=== PATIENT | female | born 1970 | race Caucasian/White ===

== ENCOUNTER 2017-02-15 05:56 | Day surgery (SDC) | payer BC ==
[2017-02-15] MEDS ORDERED: Dextrose 5%-Lactated Ringers 1,000 ML IV SCH (06:00)
[2017-02-15] MEDS ORDERED: Glycopyrrolate 0.2 MG/ML 2 ML SYRINGE IVPUSH ONE (07:00)
[2017-02-15] MEDS ORDERED: fentaNYL 100 MCG/2 ML SDV ONE (07:06)
[2017-02-15] MEDS ORDERED: Propofol 200 MG/20 ML SDV ONE (07:06)
[2017-02-15] MEDS ORDERED: Midazolam 1 MG/ML 2 ML SDV ONE (07:06)
[2017-02-15] MEDS ORDERED: Dexamethasone 4 MG/ML SDV ONE (07:08)
[2017-02-15] MEDS ORDERED: Ondansetron 4 MG/2 ML SDV ONE (07:08)
[2017-02-15 08:41] VITALS: BP 136/81
--- NOTE | 2017-02-18 12:01 | OR ---
DATE OF PROCEDURE: 02/15/2017 PREOPERATIVE DIAGNOSIS: Gastroesophageal reflux disease. POSTOPERATIVE DIAGNOSES: 1. Gastroesophageal reflux disease associated with small hiatal hernia and markedly ulcerated esophagitis. 2. Single antral polyp. OPERATIVE PROCEDURES: Esophagogastroduodenoscopy with, 1. Gastric polypectomy (39810). 2. Biopsy of esophagogastric junction (05008). ANESTHESIA: IV sedation. INDICATION FOR PROCEDURE: This is a 46-year-old female presenting with progressively worsening gastroesophageal reflux disease. In the past, she has been on some medications, but does generally not wish to be on medication and presently is not on any. She is having problems with bile coming up into the chest and also into the throat and coming out the nose at times. Plan is to proceed with upper GI endoscopy with biopsies as indicated. Potential risks including bleeding and perforation were discussed and the patient wishes that to proceed. DETAILS OF PROCEDURE: The patient was taken to the operating room and placed in a left lateral decubitus position. IV sedation was administered, after which the upper GI endoscope was passed orally through the length of the esophagus and into the stomach with retroflexion view of the fundus, thereafter through the pyloric channel and into the proximal duodenum. Findings included normal hypopharynx, larynx, upper esophageal sphincter, esophageal body, and distal esophagus. There was a small hiatal hernia, but a strikingly aggressive- appearing ulcerative esophagitis with a total of 5 erosions extending up from the esophagogastric junction. The longest of these measured around 4 cm. These were covered with fibrinous exudate with no active bleeding. There was no stricture or gross evidence of neoplasia at the esophagogastric junction. Within the stomach, the only abnormality noted was a small antral polyp. This was in a field of some very slight redness in the antrum. Pyloric channel and duodenum to the junction of the third and fourth portions were unremarkable. At this point, the antral polyp was encircled with a snare and excised and retrieved by means of a biopsy forceps after being amputated from the gastric wall via the snare. Good hemostasis was confirmed. Following this, multiple biopsies were obtained from the esophagogastric junction targeting the ulcerated areas. Minimal bleeding from the biopsy sites was seen and the procedure then concluded. The patient was taken to the recovery room in satisfactory condition. Plan will be to see the patient back in the clinic next Wednesday. We will have histology reports back and the patient would appear to be probably someone who should undergo a surgical antireflux procedure, given the severity of her symptoms and her desire not to be on medication. Larry Devries MD /[id number]
== END 2017-02-15 08:44 | disposition home or self-care (01) ==
LOC: JP.SDS 05:56
PROVIDERS: ATTEND Surgery
DX: K31.7 Polyp of stomach and duodenum (principal); K20.9 Esophagitis, unspecified; Z91.018 Allergy to other foods
CPT/HCPCS: 43239; 43251; J1100; J2250; J2405; J2704; J3010; J7042; 88305; 88312

== ENCOUNTER 2017-04-05 05:28 | Inpatient (IN) | payer BC ==
[2017-04-05] MEDS ORDERED: Dextrose 5%-Lactated Ringers 1,000 ML IV SCH (05:30)
[2017-04-05] MEDS ORDERED: ceFAZolin 2 GM in Premix Bag 1 BAG IV ONE (07:00)
[2017-04-05] MEDS ORDERED: fentaNYL 250 MCG/5 ML SDV ONE ×2 (07:01→08:12)
[2017-04-05] MEDS ORDERED: Midazolam 1 MG/ML 2 ML SDV ONE (07:01)
[2017-04-05] MEDS ORDERED: Ondansetron 4 MG/2 ML SDV ONE (07:02)
[2017-04-05] MEDS ORDERED: Dexamethasone 4 MG/ML SDV ONE (07:02)
[2017-04-05] MEDS ORDERED: Propofol 200 MG/20 ML SDV ONE (07:02)
[2017-04-05] MEDS ORDERED: Neostigmine Methylsulfate 1 MG/ML 5 ML Syringe ONE (07:02)
[2017-04-05] MEDS ORDERED: Rocuronium 50 MG/5 ML Vial ONE (07:02)
[2017-04-05] MEDS ORDERED: Naloxone 0.4 MG/ML SDV IVPUSH PRN (07:16)
[2017-04-05] MEDS: HYDROmorphone/Normal Saline 15 MG/30 ML PCA IV PRN ×2 (07:26→09:23)
[2017-04-05] MEDS ORDERED: hydrOXYzine HCl 50 MG/ML SDV IM ONE (09:36)
[2017-04-05] MEDS ORDERED: Ondansetron 4 MG/2 ML SDV IV PRN (10:50)
[2017-04-05] MEDS: Metoclopramide 10 MG/2 ML SDV IV SCH ×2 (12:55→17:21)
[2017-04-05] MEDS ORDERED: Pantoprazole 40 MG Vial IV SCH (13:00)
[2017-04-05] MEDS: ceFAZolin 2 GM in Sodium Chloride 0.9% 50 ML IV SCH ×2 (14:08→21:30)
[2017-04-05] MEDS: Levothyroxine 112 MCG Tab PO SCH (16:05)
[2017-04-05] MEDS: Dextrose 5%-Lactated Ringers 1,000 ML IV SCH ×2 (17:20→23:20)
[2017-04-06] MEDS: Metoclopramide 10 MG/2 ML SDV IV SCH ×3 (00:17→11:12)
[2017-04-06] MEDS: Dextrose 5%-Lactated Ringers 1,000 ML IV SCH (05:51)
[2017-04-06] MEDS: ceFAZolin 2 GM in Sodium Chloride 0.9% 50 ML IV SCH (05:51)
[2017-04-06] MEDS ORDERED: HYDROmorphone 2 MG Tab PO PRN (09:59)
[2017-04-06] MEDS ORDERED: Acetaminophen 325 MG Tab PO PRN (09:59)
[2017-04-06] MEDS ORDERED: Cyclobenzaprine 10 MG Tab PO PRN (10:00)
[2017-04-06] MEDS ORDERED: Dextrose 5%-Lactated Ringers 1,000 ML IV SCH (10:00)
[2017-04-06] MEDS: Levothyroxine 112 MCG Tab PO SCH (11:11)
[2017-04-06] MEDS ORDERED: Pantoprazole 40 MG Tab.CR PO SCH (16:30)
[2017-04-07] MEDS: Levothyroxine 112 MCG Tab PO SCH (07:24)
[2017-04-07 07:40] VITALS: BP 148/82
--- NOTE | 2017-04-07 12:22 | PN ---
DATE OF SERVICE: 04/06/2017 The patient is postop day 1 from Filipe fundoplication. Clinically, she is doing well. At this point, I will start a full liquid diet today. I will switch her to oral pain medication and let her get in the shower. She does have some muscle spasm in the left lateral trocar sites, and we will add some Flexeril p.r.n. She may be discharged home tomorrow. Larry Devries MD /[id number]
--- NOTE | 2017-04-07 17:35 | DISCH ---
FINAL DIAGNOSES: 1. 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 2. Mediastinal lipoma. 3. Obesity. 4. Treated hypothyroidism. OPERATIVE PROCEDURE: Done on 04/05, laparoscopic Filipe fundoplication with paraesophageal diaphragmatic hernia with mesh with an excision of mediastinal lipoma. HOSPITAL COURSE: This is a 46-year-old female presenting with longstanding gastroesophageal reflux disease that had become refractory to medical management. After preoperative evaluation and discussion, she wished to proceed with a Filipe fundoplication. On the date of admission, the patient had a significant paraesophageal component to her hiatal hernia. This was repaired with a crural repair augmented by mesh and had a mediastinal lipoma dissected free at the time of the procedure. Postoperatively, she had a little bit of discomfort on the incisions initially, but now has not required anything more than Tylenol over the last 24 hours. Tolerating the full liquid diet and the plan will be to discharge home. She will be continuing her usual home medications, which consist of Rolaids p.r.n. and Synthroid along with Tylenol p.r.n. She will be instructed to stay on a full-liquid diet for 2 weeks and then begin advancing to soft solids as tolerated at that point. Follow up with Dr. Devries in [facility] on 04/17/2017.
--- NOTE | 2017-04-09 08:56 | OR ---
DATE OF PROCEDURE: 04/05/2017 PREOPERATIVE DIAGNOSIS: Gastroesophageal reflux disease refractory to medical management. POSTOPERATIVE DIAGNOSES: 1. Paraesophageal diaphragmatic hernia associated with gastroesophageal reflux disease, refractory to medical management. 2. Mediastinal lipoma. OPERATIVE PROCEDURE: 1. Laparoscopic Filipe fundoplication with repair of paraesophageal diaphragmatic hernia with mesh (56177). 2. Excision of mediastinal lipoma (28893). ANESTHESIA: General. CLAIM ANALYST: Skylar Liu PA-C and ALOK Hurst INDICATIONS FOR PROCEDURE: This is a 46-year-old female presenting with progressively worsening gastroesophageal reflux disease that has become refractory to medical management. After preop evaluation and discussion, she wished to proceed with a Filipe fundoplication procedure. Potential risks including bleeding, infection, injury to underlying viscera, problems with the fundoplication such as dysphagia, gas-bloat syndrome, disorders in gastric emptying rate, as well as possible incomplete relief of reflux symptoms were reviewed along with the remote possibility of cardiopulmonary, septic, or hemorrhagic complications leading to and the patient wishes to proceed. DETAILS OF PROCEDURE: The patient was taken to the operating room and placed in a supine position. After general endotracheal anesthesia was induced, she was converted to a lithotomy position. Clements catheter was inserted and the abdomen prepped and draped. At 15 cm inferior, 5 cm left of xiphoid process, a transverse incision was made and the peritoneal cavity entered under direct vision with an Optiview trocar inflated to 15 mmHg pressure with CO2. Laparoscope was then reinserted. No underlying trocar insertion site injuries were seen. Following this, 4 additional trocars were placed across the upper mid abdomen and general exploration undertaken. Upon elevation of the liver the patient was noted to have a large hiatal hernia. This had a significant paraesophageal component to it with prolapse of the midportion of the gastric fundus in a plane anterior to the course of the esophagus. As this was reduced, the peritoneum to the right, then anterior, then to the left of the esophagogastric junction was incised and the esophagus then dissected away from the right and left crura and the retroesophageal window established. Juan drain was placed around this area and then the distal esophagus was dissected free circumferentially to the point where there was a roughly 4 to 5 cm segment of intraabdominal esophagus present without retraction on the [place] drain. During the course of the dissection, a mediastinal lipoma was excised. This was removed with 2 segments and sent for histologic evaluation. The posterior crural repair was then accomplished with some 0 Ethibond suture. The sutures were reinforced with PTFE pledgets. The extent of the hiatal hernia was such that there was a fair bit of tension on the crural repair and given this, a Phasix mesh was selected and this just gets to lay across the crural repair posteriorly, then alongside of the esophageal hiatus. Once in position, this was fixed with some titanium tacking screws. The division of the omentum away from the greater curvature of the stomach then began with the Harmonic scalpel at the level of the mid greater curvature, this continued proximally to include the short gastric as well as highest and posterior short gastric vessels. This allowed a very nicely mobile fundus which was retrieved through the retroesophageal window. Anesthesia then placed a guidewire orally through the length of the esophagus into the stomach. Over this, a 54-Kiswahili Savary dilator was placed. A 2 cm three-stitch fundoplication was then accomplished with 0 Ethibond sutures reinforced with PTFE pledgets. Two additional sutures between the top of the fundoplication on the right and then on the left were taken to the overlying diaphragm with the same stitch pledget combination in order to fix the fundoplication in the appropriate location over the distal esophagus. At that point, no further problems were noted. No bleeding or other problems were seen. The dilator and wire were removed and the fundoplication was judged to be sufficiently floppy. The trocars were then sequentially removed. The fascia at the 12 mm camera port was closed with 0 Vicryl stitch and the skin with 4-0 Vicryl skin stitch. Dressing was applied. The patient was taken to the recovery room in satisfactory condition. Physician operating room assistant, Skylar Liu PA-C, played an essential role in assisting in this case, helping to position the patient, retract structures as needed, as well as suturing and cutting sutures when indicated. Her presence improved the patient's safety and decreased the operative time. Larry Devries MD /[id number]
== END 2017-04-07 09:38 | disposition home or self-care (01) | DRG 220 ==
LOC: JP.SDS 05:28 → JP.MS 05:28 → JP.2SS 10:05 → EDSTATUS 10:15
PROVIDERS: ADMIT Surgery; ATTEND Surgery
PROC: 0BUR4JZ (ICD-10-PCS; principal; 2017-04-05)
PROC: 0BUS4JZ (ICD-10-PCS; principal; 2017-04-05)
PROC: 0DV44ZZ Restriction of Esophagogastric Junction, Percutaneous Endoscopic Approach (ICD-10-PCS; principal; 2017-04-05)
PROC: 0WBC4ZX Excision of Mediastinum, Percutaneous Endoscopic Approach, Diagnostic (ICD-10-PCS; principal; 2017-04-05)
DX: K44.9 Diaphragmatic hernia without obstruction or gangrene (principal); K21.9 Gastro-esophageal reflux disease without esophagitis; E03.9 Hypothyroidism, unspecified; E66.9 Obesity, unspecified; Z68.35 Body mass index [BMI] 35.0-35.9, adult; D17.4 Benign lipomatous neoplasm of intrathoracic organs
CPT/HCPCS: 88304; 94762; A9270-GY; C1781; C9113; J0690; J1100; J1170; J2250; J2405; J2704; J2765; J3010; J3410; J7042; J7050

== ENCOUNTER 2019-06-29 06:51 | Day surgery (SDC) | payer BC ==
[2019-06-29] MEDS ORDERED: Lactated Ringers 1,000 ML IV SCH (07:30)
[2019-06-29] MEDS ORDERED: Propofol 200 MG/20 ML SDV ONE (07:53)
[2019-06-29] MEDS ORDERED: fentaNYL 100 MCG/2 ML SDV ONE (07:53)
[2019-06-29] MEDS ORDERED: Midazolam 1 MG/ML 2 ML SDV ONE (07:53)
[2019-06-29 09:50] VITALS: BP 108/76
--- NOTE | 2019-06-29 13:56 | OR ---
DATE OF PROCEDURE: 06/29/2019 PREOPERATIVE DIAGNOSIS: Family history of colon cancer. POSTOPERATIVE DIAGNOSIS: Diverticulosis, family history of colon cancer. PROCEDURE: Colonoscopy to the cecum. SURGEON: Arsalan Davalos MD ANESTHESIA: IV anesthesia with monitored anesthesia care. INDICATION: This 48-year-old white female is referred for a colonoscopy because of family history of colon cancer. One uncle and two cousins had colon cancer. I counseled her for the procedure, including risks and alternatives, and she gave her informed consent to proceed. DESCRIPTION OF PROCEDURE: The patient was placed in the left lateral decubitus position. IV anesthesia was administered by the Anesthesia Service. Time-out was held. A rectal exam was performed, which was unremarkable. The flexible video Olympus colonoscope was introduced through her anus, up her rectum, out her colon all the way to the cecum. En route, we saw a few scattered left-sided diverticula. There was no bleeding or inflammation associated with any of them. Once the cecum was reached, the scope was slowly withdrawn, examining the mucosa throughout. No additional mucosal abnormalities were noted. The scope was retroflexed in the rectum with the distal rectum appearing unremarkable. The scope was straightened and removed. She tolerated the procedure well. Arsalan Davalos MD /[id number]
== END 2019-06-29 10:15 | disposition home or self-care (01) ==
LOC: JP.SDS 06:51
PROVIDERS: ATTEND Surgery
DX: Z12.11 Encounter for screening for malignant neoplasm of colon (principal); K57.30 Diverticulosis of large intestine without perforation or abscess without bleeding; K21.9 Gastro-esophageal reflux disease without esophagitis; E03.9 Hypothyroidism, unspecified; Z91.018 Allergy to other foods; Z79.899 Other long term (current) drug therapy; Z98.890 Other specified postprocedural states
CPT/HCPCS: 45378; J2250; J2704; J3010; J7120